=== PATIENT | female | born 1990 | race Two or more races ===

== ENCOUNTER → 2018-11-26 | Emergency (ER) | payer MEDICAID, OTHER | END | disposition left against medical advice (07) | LOC: ER 17:24 | DX: F41.9 Anxiety disorder, unspecified (principal); Z53.21 Procedure and treatment not carried out due to patient leaving prior to being seen by health care provider ==

== ENCOUNTER 2021-03-09 14:03 | Emergency (ER) | payer MEDICAID ==
[~2021-03-09] VITALS: Ht 172.7 cm; Wt 90.7 kg
[2021-03-09 14:06] VITALS: BP 111/60
== END 2021-03-09 18:50 | disposition left against medical advice (07) ==
LOC: ER 14:03
DX: M79.602 Pain in left arm (principal); Z53.21 Procedure and treatment not carried out due to patient leaving prior to being seen by health care provider